=== PATIENT | male | born 1945 | race Caucasian/White ===

== ENCOUNTER 2016-08-30 23:48 | Observation (INO) | payer OTHER ==
[2016-08-30] MEDS ORDERED: NS 500 ML IV ONE (23:54)
[2016-08-31 00:10] LABS: % IMMATURE GRANULYOCYTES 0.3 % (0.0-1.1); ABSOLUTE IMMATURE GRANULOCYTES 0.02 10^3/uL (0.00-0.10); ADD DIFF? NO; ADD MORPH? NO; ADD SCAN? NO; ATYPICAL LYMPHOCYTE FLAG 10 (0-99); FRAGMENT RBC FLAG 0 (0-99); HEMATOCRIT 42.7 % (40.0-51.0); HEMOGLOBIN 14.6 g/dL (13.7-17.5); LEFT SHIFT FLG 0 (0-99); LIPEMIA HEMOLYSIS FLAG 90 (0-99); MEAN CELL HEMOGLOBIN 31.9 pg (27.9-34.1); MEAN CELL HEMOGLOBIN CONCENTR. 34.2 g/dL (32.4-36.7); MEAN CELL VOLUME 93.4 fL (81.5-99.8); PLATELET CLUMPS FLAG 30 (0-99); PLATELET COUNT 87 10^3/uL (150-400); RED BLOOD CELL COUNT 4.57 10^6/uL (4.40-6.38); RED CELL DISTRIBUTION WIDTH 13.4 % (11.5-15.2)
--- NOTE | 2016-08-31 00:18 | CPEKG ---
Heart Rate: 67 RR Interval: 896 P-R Interval: 156 QRSD Interval: 102 QT Interval: 451 QTC Interval: 476 P Sawyer: 159 QRS Sawyer: -29 T Wave Sawyer: -35 EKG Severity - ABNORMAL ECG - EKG Impression: SINUS RHYTHM EKG Impression: BORDERLINE LEFT AXIS DEVIATION EKG Impression: BORDERLINE T ABNORMALITIES, INFERIOR LEADS EKG Impression: BORDERLINE PROLONGED QT INTERVAL EKG Impression: Lead II not recorded Electronically Signed By: Chicho Mason 04-Sep-2016 13:45:01
[2016-08-31 00:23] LABS: ANION GAP 13 mEq/L (8-16); CALCIUM 8.7 mg/dL (8.5-10.4); CARBON DIOXIDE 25 mEq/l (22-31); CHLORIDE 106 mEq/L (97-110); CREATININE 0.8 mg/dL (0.7-1.3); GLOMERULAR FILTRATION RATE > 60; GLUCOSE 120 mg/dL (70-100); POTASSIUM 3.1 mEq/L (3.5-5.2); SODIUM 144 mEq/L (134-144)
[2016-08-31 00:36] LABS: TROPONIN I 0.104 ng/mL (0-0.034)
[2016-08-31] MEDS ORDERED: ASPIRIN 81 MG CHEWABLE TAB PO ONE (00:43)
[2016-08-31] MEDS ORDERED: IOPAMIDOL (ISOVUE 370) 75 ML BTL IV ONE (00:52)
--- NOTE | 2016-08-31 01:06 | EDPHY ---
H & P Stated Complaint: low oxygen levels, confusion HPI/ROS: HPI The patient presents with cough, shortness of breath, disorientation. The patient is visiting the area with his and arrived here 2 days ago after driving for 3 days from [place]. He has had almost a week of cough, rhinorrhea, sore throat. However, tonight his cough became worse and he felt short of breath. His noticed that he was confused and disoriented. He was walking up a flight of stairs and fell and this concerned her so she called 911. Upon arrival of the fire department the patient's oxygen saturation was about 72%. This improved with supplemental oxygen. He has not had any chest pain. Two days ago he used marijuana edibles. After this he had some confusion and paresthesias which resolved yesterday, however his confusion has returned today.. REVIEW OF SYSTEMS Constitutional: No fever, no chills. Eyes: No discharge. ENT: + sore throat. Cardiovascular: No chest pain, no palpitations. Respiratory: + cough, no shortness of breath. Gastrointestinal: No abdominal pain, no vomiting. Genitourinary: No hematuria. Musculoskeletal: No back pain. Skin: No rashes. Neurological: No headache. PMHx: Hypertension, hypercholesterolemia Soc Hx: Visiting from [place], celebrating his 47 anniversary, PHYSICAL General Appearance: Alert, no distress Eyes: Pupils equal and round no pallor or injection ENT, Mouth: Mucous membranes moist Respiratory: There are no retractions, lungs are clear to auscultation Cardiovascular: Regular rate and rhythm Gastrointestinal: Abdomen is soft and non-tender, no masses, bowel sounds normal Neurological: A&O, moves all extremities Skin: Warm and dry, no rashes Musculoskeletal: Neck is supple non tender Extremities: symmetrical, full range of motion Psychiatric: Patient is oriented X 3, there is no agitation Source: Patient, Family, EMS - Personal History Current Tetanus/Diphtheria Vaccine: Yes Current Tetanus Diphtheria and Acellular Pertussis (TDAP): Yes - Medical/Surgical History Hx Asthma: No Hx Chronic Respiratory Disease: No Hx Diabetes: No Hx Cardiac Disease: No Hx Renal Disease: No Hx Cirrhosis: No Hx Alcoholism: No Hx HIV/AIDS: No Hx Splenectomy or Spleen Trauma: No Other PMH: HTN, high Cholesterol, eye surgery - Social History Smoking Status: Former smoker Constitutional: Initial Vital Signs Temperature (C) 37.2 C 08/30/16 23:56 Heart Rate 76 08/30/16 23:56 Respiratory Rate 16 08/30/16 23:56 Blood Pressure 150/89 H 08/30/16 23:56 O2 Sat (%) 91 L 08/30/16 23:56 O2 Delivery Mode Nasal Cannula O2 (L/minute) 2 Allergies/Adverse Reactions: No Known Allergies Allergy (Unverified 08/30/16 23:56) Home Medications: Medication Instructions Recorded Simvastatin 08/30/16 Medical Decision Making - Diagnostics EKG Interpretation: EKG: Complete interpretation has been separately recorded in the [facility] archive. Summary impression: Left axis deviation, Diffuse T-wave flattening, no old for comparison Imaging: CT chest with IV contrast demonstrates no pulmonary embolism, peribronchial thickening, mild calcified plaque left coronary artery, discussed with Dr. Salazar of Radiology. Chest x-ray two views shows mild cardiomegaly, peribronchial thickening, interpreted by me, radiology interpretation is pending. ED Course/Re-evaluation: In the emergency room, the patient was given supplemental oxygen, 4 L nasal cannula with sats in the mid 90s. He was given a 500 mL bolus of normal saline. Chest x-ray resulted and was relatively unremarkable. Labs were drawn and showed elevated D-dimer, BNP and troponin. Patient was given a dose of aspirin though remained chest pain-free while in the ER. His EKGs showed no ST segment changes though diffuse T-wave flattening. CT scan of his chest was performed which showed no pulmonary embolism. On further history, his does say over the last 1 week he has had increasing dyspnea on exertion and this could be a sign of new onset CHF. Because of his elevated BNP and troponin I will admit him to the hospitalist service. The case was discussed with Dr. Wild. Differential Diagnosis: This is a 71-year-old male with hypertension who presents with hypoxia, shortness of breath, cough, rhinorrhea in association with confusion. Differential diagnosis includes pulmonary embolism, influenza, pneumonia, pneumothorax, sepsis. - Data Points Laboratory Results: Laboratory Results 08/30/16 23:50 08/30/16 23:50 08/31/16 08/30/16 00:30 23:50 WBC 6.33 10^3/uL (3.80-9.50) RBC 4.57 10^6/uL (4.40-6.38) Hgb 14.6 g/dL (13.7-17.5) Hct 42.7 % (40.0-51.0) MCV 93.4 fL (81.5-99.8) MCH 31.9 pg (27.9-34.1) MCHC 34.2 g/dL (32.4-36.7) RDW 13.4 % (11.5-15.2) Plt Count 87 L 10^3/uL (150-400) MPV TNP Neut % (Auto) 61.4 % (39.3-74.2) Lymph % (Auto) 21.3 % (15.0-45.0) Kendall % (Auto) 14.2 H % (4.5-13.0) Eos % (Auto) 1.4 % (0.6-7.6) Baso % (Auto) 1.4 % (0.3-1.7) Nucleat RBC Rel Count 0.0 % (0.0-0.2) Absolute Neuts (auto) 3.88 10^3/uL (1.70-6.50) Absolute Lymphs (auto) 1.35 10^3/uL (1.00-3.00) Absolute Monos (auto) 0.90 H 10^3/uL (0.30-0.80) Absolute Eos (auto) 0.09 10^3/uL (0.03-0.40) Absolute Basos (auto) 0.09 10^3/uL (0.02-0.10) Absolute Nucleated RBC 0.00 10^3/uL (0-0.01) Immature Gran % 0.3 % (0.0-1.1) Immature Gran # 0.02 10^3/uL (0.00-0.10) D-Dimer 1.22 H ug/mLFEU (0.00-0.50) Sodium 144 mEq/L (134-144) Potassium 3.1 L mEq/L (3.5-5.2) Chloride 106 mEq/L (97-110) Carbon Dioxide 25 mEq/l (22-31) Anion Gap 13 mEq/L (8-16) BUN 13 mg/dL (7-23) Creatinine 0.8 mg/dL (0.7-1.3) Estimated GFR > 60 Glucose 120 H mg/dL (70-100) Calcium 8.7 mg/dL (8.5-10.4) Troponin I 0.104 H ng/mL (0-0.034) NT-Pro-B Natriuret Pep 1330 H pg/mL (0-125) Influenza Typ A,B (DFA) NEGATIVE FOR FLU (NEGATIVE) Medications Given: Discontinued Medications Aspirin (Aspirin) 324 mg PO EDNOW ONE Stop: 08/31/16 00:44 Last Admin: 08/31/16 00:48 Dose: 324 mg Sodium Chloride (Ns) 500 mls @ 0 mls/hr IV ONCE ONE PRN Reason: As Directed Stop: 08/30/16 23:55 Last Admin: 08/31/16 00:03 Dose: 500 mls Departure - Departure Disposition: [facility] Inpatient Acute Clinical Impression: Acute on chronic congestive heart failure, Hypoxia, Elevated troponin level Condition: Fair
[2016-08-31] MEDS ORDERED: ACETAMINOPHEN 325 MG TAB PO PRN (02:20)
[2016-08-31] MEDS ORDERED: ONDANSETRON 4 MG/2 ML VIAL IVP PRN (02:20)
[2016-08-31] MEDS ORDERED: FUROSEMIDE 20 MG/2 ML VIAL IVP ONE (02:22)
[2016-08-31] MEDS ORDERED: POTASSIUM CL 20 MEQ/15 ML UDCUP PO ONE (02:23)
[2016-08-31] MEDS ORDERED: PROTOCOL POTASSIUM 1 DOSE MISC PRN (02:23)
[2016-08-31] MEDS ORDERED: POTASSIUM CL 20 MEQ TAB ONE (02:28)
[2016-08-31] MEDS ORDERED: FUROSEMIDE 20 MG/2 ML VIAL ONE (02:28)
--- NOTE | 2016-08-31 03:07 | GHP ---
[f rep st] HISTORY AND PHYSICAL DATE OF ADMISSION: 08/31/2016 CHIEF COMPLAINT: Confusion and hypoxia. HISTORY: The patient is a 71-year-old male visiting from [place], celebrating his 47satding onesimo iversary with his . They drove and [place] [facility] the [facility]. They got stuck in [place] and had to spend the night in a hotel because the [address] [place] was closed. They subsequently have arrived at their rented home in [place]. The patient has been having cough and sore throat, as well as sinus congestion an d pressure for the last week. They did not have a thermometer, but his felt he had tactile feve rs. He has been feeling short of breath. This evening, he was walking up a flight of stairs when he got very confused and fell, and he is too large for his to lift him off the ground so she vieyra d 911. EMS found him to be 72% on room air. This was at their rented home in [place]. He is also complaining of dizziness. There has been no chest pain. There has been no lower extremity edema. He has recently had a 50-pound weight loss since the end of March, which has been due to a strict di etary change and walking 2 miles per day. They did eat some edible marijuana a couple days ago, whic h caused some transient confusion that had resolved, until he had recurrence of confusion this annain g. PAST MEDICAL HISTORY: 1. Hypertension. 2. Hyperlipidemia. MEDICATIONS: Please see computer record for full detailed list. ALLERGIES: No known drug allergies. SOCIAL HISTORY: Quit smoking 35 years ago, but he does continue to chew tobacco. Drinks a 6-pack of beer per week. Visiting from [place] as discussed above. REVIEW OF SYSTEMS: Complete review of systems obtained. Review of systems is negative on constituti onal, HEENT, GI, pulmonary, cardiovascular, , hematology, musculoskeletal, endocrine, and psych, ex cept for positives and negatives as in HPI. FAMILY HISTORY: Reviewed, noncontributory to presenting complaint. PHYSICAL EXAMINATION: GENERAL: Well-developed, well-nourished male, no acute distress. VITAL SIGNS : Temperature 37.2, pulse is 60, blood pressure 138/74, saturating 95% on 3 L. EYE: Normal conjunc tivae. Pupils round, react to light. ENT: Normal ears and nose. Hearing intact. Normal lips and teeth. Oropharynx moist. NECK: Trachea midline. No thyromegaly. CHEST: Normal effort. LUNGS: Clear to auscultation bilaterally. CARDIOVASCULAR: Regular rhythm. No murmur. No lower extremity edema. No significant JVD. ABDOMEN: Soft, nontender. No hepatosplenomegaly. SKIN: Warm, dry, in tact without rash. MUSCULOSKELETAL: No cyanosis or clubbing. NEUROLOGIC: Strength 5/5 upper and l ower extremities. NEURO: Cranial nerves intact. Normal sensation to light touch. PSYCH: Alert an d oriented x3. Normal mood and affect. Normal judgment and insight. Normal memory. LABS: White count is 6.3, hematocrit 42.7, platelets 87. Sodium 144, potassium 3.1, chloride 106, b icarb 25, BUN 13, creatinine 0.8, glucose 120, troponin 0.104, BNP is 1330. D-dimer is positive. In fluenza negative. Chest x-ray shows possible pulmonary edema. CT angiogram of the chest is negative for pulmonary embolus. It shows some peribronchial thickening. EKG viewed by me, my personal inter pretation is sinus rhythm, inferolateral T-wave flattening. This case was discussed with Dr. Joanna Yancey, emergency room physician, regarding ER course. She believes him to be new onset CHF. ASSESSMENT AND PLAN: 1. Acute respiratory failure. He was found to be 71% on room air. [facility] My suspicion is that this is an altitude-induced pulmonary edema superimposed on acute bronchitis. He may have new onset of true congestive heart failure to be determined. We will give h im a 1 time dose of IV Lasix. Will prescribe azithromycin for bronchitis. CT angiogram of the chest is negative for pulmonary embolus. 2. Pulmonary edema. Again, new onset congestive heart failure versus altitude-induced pulmonary romulo ma. IV Lasix x1 and we will check an echo. 3. Troponin elevation. This may be strain due to the hypoxemia versus a true ischemic event. We wi ll keep him n.p.o., and he will probably need stress testing versus cardiac catheterization depending on the trend of his troponins. 4. Bronchitis and sinusitis. I do feel he is in acute infectious element. His has been suffer ing from a similar illness. There is no pneumonia on CAT scan, however, evidence of bronchitis, as w ell as significant sinus disease by history. We will start him on a course of oral azithromycin. 5. Hypertension. Will reconcile his home medications. 6. Metabolic encephalopathy. I suspect his confusion was brought on by the hypoxemia. The edible m arijuana probably did not help as well. His mental status appears to be clearing. 7. Obesity. Body mass index is 35. He has recently lost 50 pounds with a strict weight loss progra m, which has probably put his body under some stress. CODE STATUS: Full. ADMISSION STATUS: Will admit to observation as he may be able to go home if above workup is complete d and unremarkable. DEEP VENOUS THROMBOSIS PROPHYLAXIS: He is high risk. Will place on subcu Lovenox. /[id number]/MODL
[2016-08-31 04:17] LABS: COLOR YELLOW; LEUKOCYTE ESTERASE,URINE NEGATIVE (NEGATIVE); NITRITE,URINE NEGATIVE (NEGATIVE)
[2016-08-31 04:27] LABS: ANION GAP 11 mEq/L (8-16); CALCIUM 8.5 mg/dL (8.5-10.4); CARBON DIOXIDE 29 mEq/l (22-31); CHLORIDE 106 mEq/L (97-110); CHOLESTEROL 134 mg/dL (140-220); CHOLESTEROL/HDL RATIO 3.94 RATIO (1.00-4.97); CREATININE 0.8 mg/dL (0.7-1.3); GLOMERULAR FILTRATION RATE > 60; GLUCOSE 103 mg/dL (70-100); HIGH DENSITY LIPOPROTEIN 34 mg/dL (40-65); LDL/HDL RATIO 2.41 RATIO (1.00-3.64); LOW DENSITY LIPOPROTEIN 82 mg/dL (80-100); NON-HIGH DENSITY LIPOPROTEIN 100 mg/dL (90-129); POTASSIUM 3.2 mEq/L (3.5-5.2); SODIUM 146 mEq/L (134-144); TRIGLYCERIDE 92 mg/dL (40-150); VERY LOW DENSITY LIPOPROTEINS 18 mg/dL (8-25)
[2016-08-31 04:39] LABS: TROPONIN I 0.104 ng/mL (0-0.034)
--- NOTE | 2016-08-31 04:53 | CPEKG ---
Heart Rate: 59 RR Interval: 1017 P-R Interval: 172 QRSD Interval: 106 QT Interval: 504 QTC Interval: 500 P Ismay: 49 QRS Ismay: -36 T Wave Ismay: -37 EKG Severity - ABNORMAL ECG - EKG Impression: SINUS RHYTHM EKG Impression: BORDERLINE IVCD WITH LAD EKG Impression: BORDERLINE T ABNORMALITIES, DIFFUSE LEADS EKG Impression: BORDERLINE PROLONGED QT INTERVAL Electronically Signed By: Chicho Mason 04-Sep-2016 13:44:34
--- NOTE | 2016-08-31 08:04 | DX ---
PA and Lateral Chest August 31, 2016 Clinical Indications: Shortness of breath. Findings: The lungs are clear, and no masses are found. The heart and pulmonary vessels are normal. There are no pleural effusions and no pneumothorax. The bones are unremarkable for this age. Impression: No acute cardiopulmonary process.
[2016-08-31] MEDS ORDERED: ATORVASTATIN CALCIUM 10 MG TAB PO SCH (09:00)
[2016-08-31] MEDS ORDERED: AZITHROMYCIN 250 MG TAB PO SCH (09:00)
[2016-08-31] MEDS ORDERED: ENOXAPARIN 40 MG/0.4 ML SYR SC SCH (09:00)
[2016-08-31] MEDS ORDERED: CYANO/VITAMIN B12 100 MCG TAB PO SCH (09:00)
[2016-08-31] MEDS ORDERED: ASPIRIN EC 325 MG TAB PO SCH (09:00)
[2016-08-31] MEDS ORDERED: DILTIAZEM XR 240 MG CAP PO SCH (09:00)
--- NOTE | 2016-08-31 10:09 | ECHO ---
[id number] + + [address] : : [place] [address] : : [phone] + Adult Echocardiographic Report + --------+ :Name: KESHA VIZCAINO Date: 08/31/2016 07:56 AM : : Hospital Admission Number: [id number] Locat ion: 140: :: 1945 Gender: Male Height: 75 in : :Age: 71 yrs Race: WH Weight: 283 l b : :Reason For Study: CHF : : BSA: 2.5 mete rs2 : :History: No previous : + --------+ MMode/2D Measurements & Calculations IVSd: 1.9 cm RVDd: 3.4 cm FS: 16.4 % LVOT diam: 1.9 cm LVPWd: 1.3 cm LVIDd: 4.4 cm EDV(Teich): LVOT area: LVIDs: 3.7 cm 89.6 ml 2.8 cm2 ESV(Teich): 58.5 ml EF(Teich): 34.7 % LVLd ap4: 8.6 cm SV(MOD-sp4): EDV(MOD-sp4): 67.0 ml 124.0 ml LVLs ap4: 7.3 cm ESV(MOD-sp4): 57.0 ml EF(MOD-sp4): 54.0 % Normal Measurement Values: + + :LVIDd (3.5-5.7cm) IVSd (0.6-1.1cm) LVPWd (0.6-1.1cm) Aortic Root (2.0-3.7cm)Left Atrium (1.5-4.0cm): :LV Vol(d) (76-115ml) LV Vol(s) (29-48ml) Ejec Fraction (50-65%)PV Arnoldo (0.6- 1.2m/s) TV Arnoldo (0.4-1.0m/s) : :MV E Arnoldo (0.8-1.0m/s)MV A Arnoldo (0.3-1.0m/s)LVOT Arnoldo (0.7-1.2m/s) Asc Ao Arnoldo ( 0.9-1.8m/s) : + + Doppler Measurements & Calculations MV E max arnoldo: MV V2 max: Ao V2 max: LV V1 max: 49.4 cm/sec 79.3 cm/sec 167.0 cm/sec 126.0 cm/sec MV A max arnoldo: MV max PG: Ao max PG: LV V1 max P.4 cm/sec 2.5 mmHg 11.2 mmHg 6.4 mmHg MV E/A: 0.63 MV V2 mean: Ao mean PG: LV V1 mean PG: MV dec time: 38.3 cm/sec 6.0 mmHg 3.0 mmHg 0.35 sec MV mean PG: Ao V2 mean: LV V1 mean: 1.0 mmHg 115.0 cm/sec 77.5 cm/sec MV V2 VTI: 24.3 cm Ao V2 VTI: 36.3 cm LV V1 VTI: 30.2 cm MVA(VTI): 3.5 cm2 GARRICK(I,D): 2.4 cm2 GARRICK(V,D): 2.1 cm2 SV(LVOT): 85.6 ml PA V2 max: PI end-d arnoldo: TR max arnoldo: 130.5 cm/sec 83.8 cm/sec 256.0 cm/sec PA max PG: TR max P.8 mmHg 26.2 mmHg RAP systole: 10.0 mmHg RVSP(TR): 36.2 mmHg Left Ventricle The left ventricle is normal in size and function. There is normal left ventricular wall thickness. Ejection Fraction = 55-60%. There is Doppler evidence for diastolic dysfunction. Regional wall motion abnormalities cannot be excluded due to limited visualization. Right Ventricle The right ventricle is normal in size and function. Atria The left atrial size is normal. Right atrial size is normal. The interatrial septum is intact with no evidence for an atrial septal defect. Mitral Valve There is mild mitral annular calcification. There is no mitral valve stenosis. There is trace mitral regurgitation. Tricuspid Valve The tricuspid valve is normal in structure and function. There is no tricuspid stenosis. There is mild tricuspid regurgitation. Right ventricular systolic pressure is 36.2mmHg. Aortic Valve There is mild to moderate aortic valve calcification. There is no aortic stenosis. Trace aortic regurgitation. Pulmonic Valve The pulmonic valve is not well visualized. There is no pulmonic valvular stenosis. Mild to moderate pulmonic valvular regurgitation. Great Vessels The aortic root is normal size. Pericardium/Pleural There is a fat pad seen. Conclusion A complete two-dimensional transthoracic echocardiogram was performed (2D, M-mode, Doppler and color flow Doppler). The study was technically difficult. The left ventricle is normal in size and function. Ejection Fraction = 55-60%. There is Doppler evidence for diastolic dysfunction. There is mild mitral annular calcification. There is trace mitral regurgitation. There is mild tricuspid regurgitation. Right ventricular systolic pressure is 36.2mmHg. There is mild to moderate aortic valve calcification. Trace aortic regurgitation. Mild to moderate pulmonic valvular regurgitation. Final Reading Physician: Luis Montenegro signed on 08/31/2016 10:07 AM Ordering Physician: Akiko Wild Performed By: Katia Sanabria
[2016-08-31 10:11] LABS: % IMMATURE GRANULYOCYTES 0.2 % (0.0-1.1); ABSOLUTE IMMATURE GRANULOCYTES 0.01 10^3/uL (0.00-0.10); ADD DIFF? NO; ADD MORPH? NO; ADD SCAN? NO; ATYPICAL LYMPHOCYTE FLAG 20 (0-99); FRAGMENT RBC FLAG 0 (0-99); HEMATOCRIT 42.6 % (40.0-51.0); HEMOGLOBIN 14.6 g/dL (13.7-17.5); LEFT SHIFT FLG 0 (0-99); LIPEMIA HEMOLYSIS FLAG 90 (0-99); MEAN CELL HEMOGLOBIN 31.8 pg (27.9-34.1); MEAN CELL HEMOGLOBIN CONCENTR. 34.3 g/dL (32.4-36.7); MEAN CELL VOLUME 92.8 fL (81.5-99.8); MEAN PLATELET VOLUME 13.9 fL (8.7-11.7); PLATELET CLUMPS FLAG 10 (0-99); PLATELET COUNT 81 10^3/uL (150-400); RED BLOOD CELL COUNT 4.59 10^6/uL (4.40-6.38); RED CELL DISTRIBUTION WIDTH 13.5 % (11.5-15.2)
[2016-08-31 10:19] LABS: INR 1.17 (0.83-1.16); PROTIME(PATIENT) 14.9 SEC (12.0-15.0)
--- NOTE | 2016-08-31 12:19 | GCON ---
[f rep st] CONSULTATION CARDIAC CONSULTATION I have been asked by the hospitalist to evaluate the patient for his cardiovascular issues. The patient is a big, active man from the [facility]. The day of this consultation is a Saturday. He started feeling poorly on Saturday and continued to get worse until when he came into the hospital. Before Saturday, he was in [place], [place] and he felt quite well. He started on Saturday with a fever, his eyes being red, not feeling well. He felt like he had a sinus infection over the next 2 days. Then he developed a bad cough that was persistent and some shortness of breath. He was not eating much. He was not drinking much and he felt dizzy on the day of admission, stumbled on the steps, and he had fevers and chills. He seemed to be getting worse and worse and his called 911. They came and brought him to the hospital. He does not normally have these kind of symptoms. He can have sinus infections. He thought it might be his bronchitis. He had no chest pain, jaw pain, or arm pain. He had no pleuritic chest pain. He had no orthopnea or PND. He had no arrhythmias. Has no complaints of palpitations. He has no other issues that are new. He does not have headache, stiff neck, sore throat. He has had no trauma. He has had no peripheral edema. He has had no trauma to the lower extremities. He does not have a history of cancer. He has no loss of appetite, nausea, vomiting, diarrhea, or constipation. He has been on a very aggressive diet for a good deal of time and has lost 50 pounds. He has been trying to lose weight. It has been very gradual. He is doing it by decreasing his calories and by increasing his activity. There are no associated symptoms that I have not reported. There was nothing that actually made him feel dizzy such as activity, stress. He has had no symptoms with stress or activity. He is massively obese. CARDIAC RISK FACTORS: Also positive for hypertension, hyperlipidemia, hyperuricemia, remote smoking history 35 years ago. He is negative for history of diabetes, known coronary artery disease, or a family history of premature coronary artery disease. FAMILY HISTORY: There is no one in the family who has had early at young age. No one has had early coronary artery disease in the family. SURGICAL HISTORY: Cataract surgery only. MEDICATIONS: Listed in the chart. Not repeated here. ALLERGIES: He says that he has no allergies to any medicines or foods. SOCIAL HISTORY: He was born in [place], [place]. [place], [place] is about [place] minutes north. 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 He still lives in [place] with his . They are having their 47th anniversary and that is what they came to [place] to celebrate. They have 2 children, 42 and 43, and they say that they are large people. He decided back in March that he was going to lose weight and his says that he is strong on this, that he is a [place] alexander who has not had his rice and gravy since the end of March. I asked him what happened that would make him make these changes and he said, "I just decided." He does not smoke and has not for 40 years approximately. He does not drink significant amounts of alcohol. He and his have citrus gardens, huge vegetable gardens, and are very active outdoors. PHYSICAL EXAMINATION: VITAL SIGNS: His blood pressure is 130/75, respiratory rate is 12. He is lying comfortably in a hospital bed, flat. Heart rate 65 and regular. HEENT: His neck is supple. CARDIOVASCULAR: S1, S2. Distant heart sounds. No S3 or S4. No rubs. No murmur. PULMONARY: Rhonchi bilaterally. No rales, wheezing, dullness. ABDOMEN: Soft, nontender. No organomegaly is appreciated. EXTREMITIES: No edema, inflammation, or ulceration. SKIN: Age-related changes. NEUROLOGIC: There are no significant cranial neuropathies, There are excellent motor skills. PSYCH: No obvious anxiety or depression. He came in with white count of 6.3, hematocrit was close to 43. Platelets are low in the high 80s. Sodium 144, potassium 3.1, chloride 106, CO2 25, BUN 13, creatinine 0.8, blood sugar 120. Troponin indeterminate. BNP is 1300. D- dimer is positive and chest CT said to be negative for pulmonary embolism, but the report is not out yet. Chest x-ray was negative for acute cardiopulmonary disease on the official reading. EKG shows diffuse nonspecific ST-T changes. ASSESSMENT AND PLAN: 1. Acute respiratory insufficiency. 2. Bronchitis. 3. History of hypertension. 4. Hyperlipidemia. 5. Hyperuricemia. 6. Massive obesity. 7. Hypokalemia. This chelsey gentleman and his are visiting. He appears, from a cardiovascular point of view, to my exam and by history, to be quite stable. I do not think he has congestive heart failure at this time. I do not think he has pulmonary edema on the x-ray and it is not read officially as that. I think that he is having respiratory insufficiency from a combination possibly of his cold and the altitude. He feels much better today. He has no chest pain or other symptoms that would suggest an acute coronary syndrome and make me think that he needs to do a stress test or further studies right now. His CPKs are indeterminate. His EKG did not show acute changes. His echocardiographic study shows excellent systolic function without wall motion abnormalities. He is eager to go home and get out of here. We talked about stress testing as options, we talked about coronary angiography as options, and they would like to follow with their own doctor back home. They feel that he is doing well with his echo report and how his blood work has turned out and they do not want to stay and do more testing. I think that he should do quite well, but we had a conversation about the fact that in cardiac disease, he remains at risk for sudden and that can happen any time and that they need to pay attention to the symptoms and if something deteriorates, to get back to us right away. I have given him my card and told him to call any time while they are remaining in [place] or any time if they have questions about how he is feeling. We always have a doctor covering and they understand that and will call us if they need help. If he develops new symptoms, he has to get back right away. He is going to be treated for bronchitis and sinusitis. There was evidence for bronchitis reportedly on the CT scan. He is going to start oral azithromycin. His hypertension and hyperlipidemia, he is working on. He is doing a superb job. His cholesterol is down to the 134 range which is very exciting. It also has always done quite well. I do not think there is any significant finding or history that suggests he needs significant GI or pulmonary evaluation any further than has already been done at this point in time from a pulmonary point of view. He is having no significant GI symptoms at all. He understands that these issues can pop up and that he will have to watch how things evolve. I have given him a copy of his echo report, EKGs, lab tests, chest x-ray, to take home to their own doctors with them and to use if they stop for health care while they are driving from [place] to [place]. Thank you very much for asking me to see this gentleman. /[id number]/MODL MTDD
[2016-08-31 13:09] VITALS: BP 166/83; PULSE 61; RESP 16; TEMP 98.8; O2SAT 93
--- NOTE | 2016-08-31 13:15 | CT ---
CT Pulmonary Angiogram 0107 hours Clinical Indications: Chest pain and dizziness. Previous history of pneumonia. Evaluate for possible pulmonary embolus. Technique: Thinly collimated multidetector helical CT imaging was performed through the chest while 100 mL Isovue-370 were injected intravenously without complication. The images were reconstructed in multiple planes. Dose reduction techniques were utilized. Findings: CT Angiogram: There is no evidence of intraluminal thrombus within the pulmonary arterial system. Th e thoracic aorta has a normal contour without evidence of aneurysm or dissection. There are some scat tered calcified plaques involving the aortic arch and descending thoracic aorta. Calcified plaques ar e also seen involving the proximal left coronary artery. There is no pericardial effusion. The cardia c chambers are normal in appearance. CT Chest: The lungs are clear without infiltrate or effusion. There are no significant pulmonary nod ules. Moderate peribronchial cuffing is seen in the perihilar region bilaterally. There is mild elev ation of the right hemidiaphragm with mild compressive atelectatic change suspected at the right lung base posteriorly. There males be component of some dependent edema. Soft tissues are unremarkable. The visualized upper abdominal structures are unremarkable during arterial phase of imaging. Skeletal system: Vertebral body heights are well-maintained. There are no lytic or sclerotic osseous lesions. Impression: 1. No evidence of pulmonary embolus using CT protocol. 2. Moderate peribronchial cuffing in the perihilar region bilaterally. Findings are nonspecific but c an is bronchitis, viral process, or reactive airways disease. 3. 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 The study was performed as an emergency on-call case and discussed by telephone with Dr. Rosetta jimenez at 0123 hrs. The final interpretation is concordant with the original communication.
[2016-08-31] MEDS ORDERED: IPRATROPIUM/ALBUTEROL 3 ML DEYVIAL IH SCH (14:30)
[2016-08-31] MEDS ORDERED: predniSONE 20 MG TAB PO SCH (14:30)
[2016-08-31] MEDS ORDERED: ZOLPIDEM TARTRATE 5 MG TAB PO SCH (21:00)
[2016-08-31] MEDS ORDERED: traZODone 100 MG TAB PO SCH (21:00)
== END 2016-08-31 15:22 | disposition home or self-care (01) ==
LOC: EDBD 23:48 → F1N 08-31 05:00
PROVIDERS: ADMIT Internal Medicine; ATTEND Internal Medicine
DX: J96.01 Acute respiratory failure with hypoxia (principal); J81.0 Acute pulmonary edema; J40 Bronchitis, not specified as acute or chronic; J32.9 Chronic sinusitis, unspecified; E87.6 Hypokalemia; R79.89 Other specified abnormal findings of blood chemistry; E79.0 Hyperuricemia without signs of inflammatory arthritis and tophaceous disease; I10 Essential (primary) hypertension; E78.5 Hyperlipidemia, unspecified; G93.41 Metabolic encephalopathy; E66.9 Obesity, unspecified; Z68.35 Body mass index [BMI] 35.0-35.9, adult; Z87.891 Personal history of nicotine dependence
CPT/HCPCS: 71020; 71275; 93005; 93306; 97161; 97165; G0378; G8978; G8979; G8980; G8987; G8988; G8989